=== PATIENT | male | born 1940 | race Hispanic/Latino ===

== ENCOUNTER → 2022-09-18 | Outpatient (CLI) | payer OTHER ==
[~2022-09-18] MED LIST: AEC81 PO; AMIO200T68 PO; CARV3.12 PO; FERS325 PO; GLIM2TAB30 PO; LISI20TA24 PO; METF-446 PO; SIMV10TA97 PO
== END | disposition home or self-care (01) ==
LOC: RAH 12:56
PROVIDERS: ATTEND Internal Medicine Cardiovascular Disease
DX: Z13.6 Encounter for screening for cardiovascular disorders (principal); I51.5 Myocardial degeneration
CPT/HCPCS: 75571

== ENCOUNTER 2023-05-15 05:38 | Observation (INO) | payer OTHER, MEDICARE ==
[2023-05-10 08:59] LABS: BASOPHILS # (AUTO) 0.05 K/uL (0.00-0.20); BASOPHILS % (AUTO) 0.7 % (0.0-5.0); EOSINOPHILS % (AUTO) 8.3 % (0.0-8.0); HEMATOCRIT 39.3 % (42-54); IMMATURE GRANULOCYTE ABSOLUTE 0.01 K/uL (0-1); LYMPHOCYTES # (AUTO) 1.5 K/uL (1.0-4.8); LYMPHOCYTES % (AUTO) 20.2 % (21.0-51.0); MEAN CORPUSCULAR HEMOGLOBIN 28.3 pg (27.0-33.0); MEAN CORPUSCULAR HGB CONC 32.3 g/dL (32.0-36.0); MEAN CORPUSCULAR VOLUME 87.5 fL (79-99); MONOCYTES # (AUTO) 0.9 K/uL (0.1-1.0); MONOCYTES % (AUTO) 11.8 % (3.0-13.0); NEUTROPHILS # (AUTO) 4.3 K/uL (1.8-7.7); NEUTROPHILS % (AUTO) 58.9 % (40.0-77.0); PLATELET COUNT (AUTO) 181 K/uL (130-400); RED BLOOD CELL COUNT(AUTO) 4.49 MIL/uL (4.50-6.20); RED CELL DISTRIBUTION WIDTH 14.9 % (11.0-15.5); WHITE BLOOD COUNT (AUTO) 7.2 K/uL (4.8-10.8)
[2023-05-10 09:07] LABS: CREATININE 0.9 mg/dL (0.5-1.5); POTASSIUM 5.3 mmol/L (3.5-5.1)
[2023-05-10 09:09] LABS: INR 0.94 (0.85-1.15)
[2023-05-10 09:10] LABS: PARTIAL THROMBOPLASTIN TIME 29.6 SEC (26.3-35.5)
[2023-05-10 09:55] VITALS: BP 145/80; PULSE 51; RESP 13
[2023-05-15] VITALS (19 sets, daily range): BP systolic 116–146; BP diastolic 44–70; PULSE 53–62; RESP 13–18; O2SAT 98
[~2023-05-15] VITALS: Ht 172.7 cm; Wt 66.6 kg
[~2023-05-15 05:38] MED LIST changes: +APIX5TAB PO; -CARV3.12 PO; +ERGO500093 PO; -FERS325 PO; +ISOS10TA8 PO; -LISI20TA24 PO; +METO25TA6 PO; +NITR0.4T50 SL; +ONDA4TAB10 PO; +SENN17.24 PO; +levocetirizine PO
[2023-05-15] MEDS ORDERED: 0.9%NACL 1000ML 1,000 ML IV ONE (06:09)
[2023-05-15 06:27] LABS: POTASSIUM 5.4 mmol/L (3.5-5.1)
[2023-05-15] MEDS ORDERED: LIDOCAINE HCL 400MG/20ML VIAL ONE ×2 (07:06→08:18)
[2023-05-15] MEDS ORDERED: HEPARIN 10,000 UNIT/10ML (1,000 UNIT/ML) VIAL ONE (07:06)
[2023-05-15] MEDS ORDERED: MIDAZOLAM HCL 1 MG/ML 2ML VIAL ONE (07:36)
[2023-05-15] MEDS ORDERED: NEOSTIGMINE METHYLSULFATE 1MG/ML IV ONE (07:37)
[2023-05-15] MEDS ORDERED: ROCURONIUM BROMIDE 10MG/1ML 5ML VL ONE (07:37)
[2023-05-15] MEDS ORDERED: FENTANYL CITRATE PF 50 MCG/1 ML 2ML VIAL ONE (07:37)
[2023-05-15] MEDS ORDERED: GLYCOPYRROLATE 0.2 MG/ML 5 ML VIAL ONE (07:37)
[2023-05-15] MEDS ORDERED: ONDANSETRON 4MG INJ ONE (07:37)
[2023-05-15] MEDS ORDERED: PROPOFOL 10 MG/ML 20ML VIAL IV ONE (07:37)
[2023-05-15] MEDS ORDERED: EPHEDRINE SULFATE 50 MG/ML AMPULE ONE (08:10)
[2023-05-15] MEDS ORDERED: PHENYLEPHRINE HCL 10 MG/ML 1ML VIAL IV ONE (08:30)
[2023-05-15] MEDS ORDERED: ADENOSINE 90MG VIAL IV ONE (12:08)
[2023-05-15] MEDS ORDERED: PROTAMINE SULFATE 10 MG/ML 5 ML VIAL ONE (12:23)
[2023-05-15] MEDS ORDERED: SENNOSIDES 8.6 MG TABLET PO PRN (13:30)
[2023-05-15] MEDS ORDERED: ONDANSETRON ODT 4MG TAB PO PRN (13:30)
[2023-05-15] MEDS ORDERED: PANTOPRAZOLE 40 MG TAB DR PO ONE (14:00)
[2023-05-15] MEDS: METFORMIN HCL 500 MG TABLET PO SCH (16:26)
[2023-05-15] MEDS: SUCRALFATE 1 GM TABLET PO SCH ×2 (16:26→21:53)
[2023-05-15] MEDS: APIXABAN 5 MG TABLET PO SCH (19:58)
[2023-05-15] MEDS ORDERED: SIMVASTATIN 10 MG TABLET PO SCH (21:00)
[2023-05-15] MEDS ORDERED: LEVOCETIRIZINE 10 MG PO SCH (21:00)
[2023-05-15] MEDS: GLIMEPIRIDE 2 MG TABLET PO SCH (21:47)
[2023-05-15] MEDS: ISOSORBIDE MONONITRATE 20 MG TABLET PO SCH (21:49)
[2023-05-15] MEDS: METOPROLOL TARTRATE 25 MG TAB PO SCH (21:49)
[2023-05-15] MEDS: NITROGLYCERIN 0.4 MG SL TAB SL PRN ×2 (23:52→23:58)
[2023-05-16 00:10] VITALS: BP 134/77; PULSE 80; RESP 18
[2023-05-16] MEDS ORDERED: MORPHINE 2 MG SYG IVP PRN (01:00)
[2023-05-16] MEDS ORDERED: HYDRALAZINE 20MG/ML VIAL IV PRN (01:00)
[2023-05-16] MEDS ORDERED: ACETAMINOPHEN 500 MG TABLET PO SCH (01:00)
[2023-05-16] MEDS: SUCRALFATE 1 GM TABLET PO SCH ×2 (01:22→09:33)
[2023-05-16 04:52] VITALS: BP 115/59; PULSE 65; RESP 18
[2023-05-16 08:00] VITALS: O2SAT 96
[2023-05-16 08:51] VITALS: BP 120/62; PULSE 72; RESP 18
[2023-05-16] MEDS ORDERED: PANTOPRAZOLE 40 MG TAB DR PO SCH (09:00)
[2023-05-16] MEDS ORDERED: ASPIRIN 81 MG EC TAB PO SCH (09:00)
[2023-05-16] MEDS ORDERED: LACTULOSE 20 GM/30 ML UDCUP PO ONE (09:00)
[2023-05-16] MEDS ORDERED: AMIODARONE 200 MG TABLET PO SCH (09:00)
[2023-05-16] MEDS ORDERED: PANT40TA PO (09:08)
[2023-05-16] MEDS ORDERED: SUCR1ORA15 PO (09:08)
[2023-05-16] MEDS: METFORMIN HCL 500 MG TABLET PO SCH (09:30)
[2023-05-16] MEDS: ISOSORBIDE MONONITRATE 20 MG TABLET PO SCH (09:31)
[2023-05-16] MEDS: GLIMEPIRIDE 2 MG TABLET PO SCH (09:31)
[2023-05-16] MEDS: METOPROLOL TARTRATE 25 MG TAB PO SCH (09:32)
[2023-05-16] MEDS: APIXABAN 5 MG TABLET PO SCH (09:32)
[2023-05-16 12:30] VITALS: BP 117/61; PULSE 73; RESP 18
== END 2023-05-16 12:42 | disposition home or self-care (01) ==
LOC: DAH 05:38 → DAHIP 05:39 → EDBD 08:00 → 2DH 14:15
PROVIDERS: ADMIT Internal Medicine Cardiovascular Disease; ATTEND Internal Medicine Cardiovascular Disease
DX: I48.0 Paroxysmal atrial fibrillation (principal); I48.4 Atypical atrial flutter; E11.9 Type 2 diabetes mellitus without complications; E78.5 Hyperlipidemia, unspecified; I10 Essential (primary) hypertension; I25.10 Atherosclerotic heart disease of native coronary artery without angina pectoris; K59.00 Constipation, unspecified
CPT/HCPCS: 80048 ×2; 85025; 85610; 85730; 36415 ×2; 93005 ×3; 93623; 93655; 93656; 93657; 85347 ×7; 82948 ×6; 96374; A4344; C1894 ×3; C1732 ×2; C1893; A4215 ×2; C1731; A4649 ×2; G0378 ×24; J3010; J3490 ×5; J7030; J2720; J1644 ×3; J2250; J2704; J2405; J2710; J2371; J0153; A4223 ×3; A4222; A4221; A4663; A4216; A4606; J2270

== ENCOUNTER 2023-08-22 06:59 | Day surgery (SDC) | payer OTHER, MEDICARE ==
[2023-08-20 13:12] VITALS: BP 123/65; PULSE 79; RESP 18
[2023-08-20 13:17] LABS: BASOPHILS # (AUTO) 0.04 K/uL (0.00-0.20); BASOPHILS % (AUTO) 0.6 % (0.0-5.0); EOSINOPHILS # (AUTO) 0.15 K/uL (0.00-0.70); EOSINOPHILS % (AUTO) 2.3 % (0.0-8.0); HEMATOCRIT 38.3 % (42-54); IMMATURE GRANULOCYTE ABSOLUTE 0.03 K/uL (0-1); LYMPHOCYTES # (AUTO) 1.8 K/uL (1.0-4.8); LYMPHOCYTES % (AUTO) 26.6 % (21.0-51.0); MEAN CORPUSCULAR HEMOGLOBIN 28.9 pg (27.0-33.0); MEAN CORPUSCULAR HGB CONC 32.1 g/dL (32.0-36.0); MEAN CORPUSCULAR VOLUME 89.9 fL (79-99); MONOCYTES # (AUTO) 0.6 K/uL (0.1-1.0); MONOCYTES % (AUTO) 8.4 % (3.0-13.0); NEUTROPHILS # (AUTO) 4.1 K/uL (1.8-7.7); NEUTROPHILS % (AUTO) 61.6 % (40.0-77.0); PLATELET COUNT (AUTO) 172 K/uL (130-400); RED BLOOD CELL COUNT(AUTO) 4.26 MIL/uL (4.50-6.20); RED CELL DISTRIBUTION WIDTH 14.7 % (11.0-15.5); WHITE BLOOD COUNT (AUTO) 6.7 K/uL (4.8-10.8)
[2023-08-20 13:33] LABS: POTASSIUM 5.6 mmol/L (3.5-5.1)
[2023-08-22] VITALS (9 sets, daily range): BP systolic 108–145; BP diastolic 47–86; PULSE 50–65; RESP 15–16
[~2023-08-22] VITALS: Ht 172.7 cm; Wt 66.2 kg
[~2023-08-22 06:59] MED LIST changes: -ERGO500093 PO; -ISOS10TA8 PO; -ONDA4TAB10 PO; +PANT40TA54 PO; +SENN-2 PO; -SENN17.24 PO; +VITAMIN B12 PO; -levocetirizine PO
[2023-08-22 07:58] LABS: CREATININE 0.9 mg/dL (0.5-1.3); POTASSIUM 5.1 mmol/L (3.5-5.1)
[2023-08-22] MEDS ORDERED: PROPOFOL 10 MG/ML 20ML VIAL IV ONE (09:10)
== END 2023-08-22 10:35 | disposition home or self-care (01) ==
LOC: DAH 06:59
PROVIDERS: ATTEND Internal Medicine Cardiovascular Disease
DX: I48.4 Atypical atrial flutter (principal); E11.9 Type 2 diabetes mellitus without complications; E78.00 Pure hypercholesterolemia, unspecified; Z98.890 Other specified postprocedural states; Z82.49 Family history of ischemic heart disease and other diseases of the circulatory system; Z72.89 Other problems related to lifestyle; Z87.891 Personal history of nicotine dependence; Z79.01 Long term (current) use of anticoagulants; Z79.890 Hormone replacement therapy
CPT/HCPCS: 80048 ×2; 85025; 36415 ×2; 92960; 93005 ×2; 82948; J2704; A4620; A4215; A4222; A4221; A4663; A4216; A4606; A4223 ×3; J3490

== ENCOUNTER → 2024-09-24 | Outpatient (CLI) | payer OTHER, MEDICARE ==
[2024-09-24] MEDS: REGADENOSON 0.4 MG/5 ML PF SYG IVP ONE (12:29)
== END | disposition home or self-care (01) ==
LOC: SHCH 07:51
PROVIDERS: ATTEND Internal Medicine Cardiovascular Disease
DX: I48.0 Paroxysmal atrial fibrillation (principal); I49.8 Other specified cardiac arrhythmias; R10.9 Unspecified abdominal pain
CPT/HCPCS: 78452; 93017; J2785; A9500 ×2

== ENCOUNTER 2025-03-11 07:28 | Day surgery (SDC) | payer OTHER ==
[2025-03-10 08:33] LABS: IMMATURE GRANULOCYTE ABSOLUTE 0.02 K/uL (0-1); NUCLEATED RED BLOOD CELLS 0.0 % (0.0-0.19); PLATELET COUNT (AUTO) 187 K/uL (130-400); RED BLOOD CELL COUNT(AUTO) 4.15 MIL/uL (4.50-6.20); RED CELL DISTRIBUTION WIDTH 17.7 % (11.0-15.5); WHITE BLOOD COUNT (AUTO) 6.2 K/uL (4.8-10.8)
[2025-03-10 08:44] VITALS: BP 139/67; PULSE 79; RESP 18; TEMP 97.5
[2025-03-10 08:44] LABS: CREATININE 1.1 mg/dL (0.5-1.3); GLOMERULAR FILTR. RATE CALC 67.0 mL/min (>90); GLUCOSE,RANDOM 98.0 mg/dL (70-105); SODIUM SERUM 142.0 mmol/L (136-145); UREA NITROGEN, BLOOD 21.0 mg/dL (7-18)
[~2025-03-11] VITALS: Ht 172.7 cm; Wt 63.8 kg
[2025-03-11] VITALS (7 sets, daily range): BP systolic 110–130; BP diastolic 51–67; PULSE 59–85; RESP 13–15; TEMP 97.5
[~2025-03-11 07:28] MED LIST changes: -AEC81 PO; -AMIO200T68 PO; +CHOL2000 PO; +CLOP75TA32 PO; +DRON400T7 PO; +FOLI0.8C PO; +GLIM1TAB56 PO; -GLIM2TAB30 PO; +IRON150C5 PO; +ISOS30TA92 PO; +KETO-108 OS; +LINA145C PO; +METF-910 PO; -PANT40TA54 PO; -SENN-2 PO
--- NOTE | 2025-03-11 09:57 | NUR ---
PT SYNCHRONIZED CARDIOVERTED 150 JOULES AT THIS TIME VSS NAD PT DID CONVERT TO NSR WITH PAC'S. PT TOLERATED WELL NAD VSS
--- NOTE | 2025-03-11 10:09 | NUR ---
PT AWAKE SPEAKING WITH STAFF VSS NAD
--- NOTE | 2025-03-11 11:10 | NUR ---
BOTH PT AND SPOUSE GIVEN VERBAL AND WRITTEN DISCHARGE INSTRUCTIONS IV REMOVED SITE ASYMPTOMATIC. PT TAKEN OUT VIA WHEELCHAIR SPOUSE DRIVING.
--- NOTE | 2025-03-11 12:02 | PRN ---
Procedure Note Date of procedure: Diagnosis: Persistent atypical atrial flutter Procedure: Cardioversion Physician: Serafin Shaw MD The patient was brought to the day patient area in a fasting state. Anesthesia was provided by the anesthesia service. Cardioversion was performed with a synchronized shock at 120 joules resulting in sinus rhythm. The patient tolerated the procedure well. Final diagnosis: Persistent atypical atrial flutter, status post successful cardioversion Disposition: The patient will be discharged later today and will follow up with me in the office in approximately two weeks. SERAFIN SHAW MD Mar 11, 2025 12:02
--- NOTE | 2025-03-11 14:02 | EKG ---
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
--- NOTE | 2025-03-11 14:02 | EKG ---
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
== END 2025-03-11 11:12 | disposition home or self-care (01) ==
LOC: DAH 07:28
PROVIDERS: ATTEND Internal Medicine Cardiovascular Disease
DX: I48.4 Atypical atrial flutter (principal); I49.1 Atrial premature depolarization; I10 Essential (primary) hypertension; I25.10 Atherosclerotic heart disease of native coronary artery without angina pectoris; E11.9 Type 2 diabetes mellitus without complications; E78.00 Pure hypercholesterolemia, unspecified; Z96.642 Presence of left artificial hip joint; Z79.01 Long term (current) use of anticoagulants; Z79.84 Long term (current) use of oral hypoglycemic drugs; Z79.899 Other long term (current) drug therapy
CPT/HCPCS: 80048; 85025; 36415; 92960; 82948; 93005 ×2; J2704; A4620; A4215; A4222; A4221; A4663; A4216; A4606; A4223 ×3; J3490